=== PATIENT | male | born 1980 | race Caucasian/White ===

== ENCOUNTER → 2017-10-19 16:24 | Outpatient (CLI) | payer BC, SELFPAY ==
[2017-10-19 16:34] LABS: Pathologist Comment May follow
[2017-10-19 18:01] LABS: RBC /Synovial Fluid 0.352 10^6/uL (0); Synovial Fld Mononuclear WBC % 14.9 %; Synovial Fld Polynuclear WBC # 0.911 10^3/ul; Synovial Fld Polynuclear WBC % 85.1 %
[2017-10-19 18:43] LABS: CRYSTALS, BODY FLUID See PATH REV; Source- Body Fluid SYNOVIAL
[2017-10-19 18:44] LABS: Body Fluid QC Type(s) BF1Q
[2017-10-19 21:27] LABS: AUTO B FLUID DILUENT BKGD CT WBC <0.1 RBC <0.01 (W<.1,R<.01); Appearance /Synovial Fluid Cloudy (CLEAR); Color / Synovial Fluid Red (Pale Yellow); Lymph 4 %; Monocyte /Synovial Fluid 3 %; Neutrophil 86 % (0-25); Source / Synovial Fluid LEFT KNEE; Source- Body Fluid SYNOVIAL; Synovial Fld Mononuclear WBC # 0.159 10^3/ul
[2017-10-19 21:28] LABS: Body Fluid QC Type(s) BF1Q,BF2Q; Other Cell /Synovial Fluid 7 %
[2017-10-20 09:11] LABS: Pathologist Review Reviewed
== END ==
PROVIDERS: Visit Provider Physician Assistant
DX: M70.42 Prepatellar bursitis, left knee (principal)
CPT/HCPCS: 87070; 87075; 87077; 87186; 87205; 89050; 89051; 89060

== ENCOUNTER 2017-10-22 09:04 | Day surgery (SDC) | payer BC, SELFPAY ==
[2017-10-22] VITALS (7 sets, daily range): BP systolic 111–123; BP diastolic 75–93; PULSE 61–84; RESP 12–16; TEMP 36.2–36.8; O2SAT 96–100; BMI 26.8
--- NOTE | 2017-10-22 10:18 | PCM.DC.ORTHO ---
Discharge Diet: No Restrictions Discharge Activity: May not drive while taking narcotic pain medications. May shower in (days): 1 - keep dressing clean and dry May resume sexual activity in: No Restrictions Ice area for (Minutes): 20 - Ice area for 20 minutes each hour while awake Weight Bearing Status: Weight bearing as tolerated - use crutches if necessary Keep extremity elevated above heart level: Operative Extremity, Left Leg Call your doctor if your incision/area has: Continuous Slow Oozing, Sudden Increased Bleeding, Increased Pain/ Swelling, Increased Redness, Foul Smelling Discharge Call your doctor if you observe: Fever of 101 or Higher, Coldness, Increased Pain, Numbness or Tingling, Change in Color Cleanse incision/area with: Keep Dressing Clean & Dry Additional Dressing/Incision Instructions:: Do not remove dressing Allergies/Adverse Reactions: Allergies No Known Allergies Allergy (Verified 10/22/17 09:39) Medications to take at Discharge Hydrocodone Bitart/Apap 5-325 [[place] 5/325] 1 - 2 tab PO Q6H PRN PRN 7 Days #56 tab 10/22/17 Rifampin 300 mg PO BID 7 Days #14 cap 10/22/17 Sulfamethoxazole/Trimethoprim [Sulfamethoxazole-Tmp Ds Tablet] 1 tab PO BID 7 Days #14 tab 10/22/17 The following prescriptions were given: Hydrocodone Bitart/Apap 5-325 [[place] 5/325] 1 - 2 tab PO Q6H PRN PRN 7 Days #56 tab PRN Reason: Mild-Moderate (pain scale 1-5) Rifampin 300 mg PO BID 7 Days #14 cap Sulfamethoxazole/Trimethoprim [Sulfamethoxazole-Tmp Ds Tablet] 1 tab PO BID 7 Days #14 tab Please Follow Up With: Benton Boyd DO When: next week
--- NOTE | 2017-10-22 10:24 | DCINST_ITS ---
Discharge Diet: No Restrictions Discharge Activity: May not drive while taking narcotic pain medications. May shower in (days): 1 - keep dressing clean and dry May resume sexual activity in: No Restrictions Ice area for (Minutes): 20 - Ice area for 20 minutes each hour while awake Weight Bearing Status: Weight bearing as tolerated - use crutches if necessary Keep extremity elevated above heart level: Operative Extremity, Left Leg Call your doctor if your incision/area has: Continuous Slow Oozing, Sudden Increased Bleeding, Increased Pain/ Swelling, Increased Redness, Foul Smelling Discharge Call your doctor if you observe: Fever of 101 or Higher, Coldness, Increased Pain, Numbness or Tingling, Change in Color Cleanse incision/area with: Keep Dressing Clean & Dry Additional Dressing/Incision Instructions:: Do not remove dressing Allergies/Adverse Reactions: Allergies No Known Allergies Allergy (Verified 10/22/17 09:39) Medications to take at Discharge Hydrocodone Bitart/Apap 5-325 [[place] 5/325] 1 - 2 tab PO Q6H PRN PRN 7 Days #56 tab 10/22/17 Rifampin 300 mg PO BID 7 Days #14 cap 10/22/17 Sulfamethoxazole/Trimethoprim [Sulfamethoxazole-Tmp Ds Tablet] 1 tab PO BID 7 Days #14 tab 10/22/17 The following prescriptions were given: Hydrocodone Bitart/Apap 5-325 [[place] 5/325] 1 - 2 tab PO Q6H PRN PRN 7 Days #56 tab PRN Reason: Mild-Moderate (pain scale 1-5) Rifampin 300 mg PO BID 7 Days #14 cap Sulfamethoxazole/Trimethoprim [Sulfamethoxazole-Tmp Ds Tablet] 1 tab PO BID 7 Days #14 tab Please Follow Up With: Benton Boyd DO When: next week
--- NOTE | 2017-10-22 10:24 | PCM.OPRPT ---
Report of Operation Date of Procedure: 10/22/17 Pre-Operative Diagnosis: Infected pre-patellar bursa left Post-Operative Diagnosis: same Surgery/Procedure Performed:: Irrigation and debridement of infected prepatellar bursa left knee Description of Surgical Findings:: Purulent material noted Type of Anesthesia:: General Anesthesiologist: Parrish Werner Special Medications: none Estimated Blood Loss (mL): 25 Fluids Replaced: see anesthesia report Description of Procedure: Surgical indications: David is a 36-year-old male that has septic prepatellar bursitis. I attempted aspiration followed by an I&D. This is been unsuccessful. He presents this morning with continued infected bursa Procedure description: Patient was greeted in the preoperative area. His left lower extremity was marked with surgical marker. Preoperative antibiotics were administered as we already have a diagnosis of staph infection as well as sensitivities. I did provide vancomycin because the patient has an RORY appropriate for such as well as he has failed oral antibiotics. This is not methicillin-resistant staph aureus. He was then taken to or [address] in a stable condition. After adequate anesthesia was obtained and airway was secured is placed in supine position on operating room table his leg was then prepped draped in usual sterile fashion surgical times performed surgery was commenced. Patient did have a significant amount of fluctuance noted in the anterior aspect of the knee I did make a 3 inch incision overlying the volar aspect of the knee. Purulence was immediately identified. Once this was incised dissection was then carried down to the extensor mechanism and the patella I did excise the infected and affected tissue of the bursa. I did not set this for any further cultures and sensitivities as I feel that this is unnecessary as we have good cultures and sensitivities from previous. At this point after bursectomy was performed irrigation of the wound was performed with 9000 mL of normal saline. Once this was complete any further tissue was removed followed by layered closure with 0 PDS the subcutaneous tissue and 2-0 nylon in the skin Chelsey dressing was applied and left proud in the lateral aspect of the knee well-padded nonadherent dressings applied with a Omar wrap patient was taken to recovery room in stable condition. Will continue oral antibiotics as an outpatient and follow-up my office next week - Admit VTE Documentation VTE Present on Admission: Yes VTE Mechan Device Prophylaxis: SCD's, Thigh High ZAIRA Hose Reason prophylaxis not ordered:: Procedure Not Indicated
[2017-10-22] MEDS: HYDROcodone Bitartrate/Apap 5/325 Tablet PO (12:25)
== END 2017-10-22 14:05 | disposition home or self-care (01) ==
LOC: SDC 09:05 → ACINP 09:12 → AC 09:34
PROVIDERS: Family Provider Physician Assistant; PCP Physician Assistant; Visit Provider Orthopaedic Surgery
PROC: (CPT 27340; principal; 2017-10-22 10:15)
DX: M71.162 Other infective bursitis, left knee (principal); B95.8 Unspecified staphylococcus as the cause of diseases classified elsewhere; Z79.2 Long term (current) use of antibiotics; Z79.52 Long term (current) use of systemic steroids
CPT/HCPCS: 27340; J7120; J2405

== ENCOUNTER → 2018-04-04 17:01 | Outpatient (CLI) | payer BC, SELFPAY ==
--- NOTE | 2018-04-04 17:16 | RAD_ITS ---
STUDY: X-RAY - RIGHT FOOT CLINICAL: Male, 37 years old. Trauma TECHNIQUE: 3 view(s) of the foot. COMPARISON: None. FINDINGS: There is a plantar aspect calcaneal spur. Normal visualized subtalar, talonavicular, calcaneocuboid, tarsal and tarsometatarsal articulations. Normal metatarsi. Normal metatarsophalangeal joint of the great toe. Normal tibial and fibular sesamoid bones. Normal interphalangeal joint of the great toe. Normal phalanges of the great toe. Normal second through fifth metatarsophalangeal joints. Normal interphalangeal joints and phalanges of the lesser toes. The soft tissue structures are unremarkable. RAD/Foot min 3 Views IMPRESSION: There is no evidence of fracture or dislocation. There is a plantar aspect calcaneal spur. Electronically Signed: Jose Ferguson MD at 18:29 EDT , Service support ,
== END ==
PROVIDERS: Visit Provider Physician Assistant Surgical
DX: S90.31XA Contusion of right foot, initial encounter (principal)
CPT/HCPCS: 73630

== ENCOUNTER → 2025-01-12 | Outpatient (CLI) | payer BC, SELFPAY ==
--- NOTE | 2025-01-12 11:30 | RAD_ITS ---
PROCEDURE: CHEST PA AND LATERAL 01/12/2025 REASON FOR EXAM: R/O PNEUMONIA Cough. TECHNIQUE: Frontal and lateral views of the chest. COMPARISON: None FINDINGS: Hardware: None Heart: The heart size is normal. Mediastinum: The mediastinal contour is unremarkable. Lungs: The lungs are clear. Bones: The bones are unremarkable. RAD/Chest PA and Lateral IMPRESSION: NO ACUTE FINDINGS. Reading Location: [facility]
== END | disposition home or self-care (01) ==
PROVIDERS: PCP Internal Medicine; Referring Provider Nurse Practitioner Family; Visit Provider Nurse Practitioner Family
DX: J20.9 Acute bronchitis, unspecified (principal)
CPT/HCPCS: 71046